=== PATIENT | male | born 1990 | race Caucasian/White ===

== ENCOUNTER 2016-11-18 15:13 | Emergency (ER) | payer BC, OTHER ==
[~2016-11-18] VITALS: Ht 175.3 cm; Wt 68.0 kg
[2016-11-18 19:15] VITALS: BP 123/68
== END 2016-11-18 15:51 | disposition home or self-care (01) ==
LOC: ED 15:14
DX: J06.9 Acute upper respiratory infection, unspecified (principal)
CPT/HCPCS: 99281; 99282